=== PATIENT | female | born 1985 | race Caucasian/White ===

== ENCOUNTER 2016-09-20 12:00 | Emergency (ER) | payer OTHER, BC ==
[2016-09-20 13:23] LABS: ABSOLUTE NEUTROPHIL COUNT 5.2 K/mm3 (1.8-7.7); BASO % 0.2 % (0.2-1.0); EOS # 0.1 (0.0-0.5); EOS % 0.9 % (0.9-2.9); HEMATOCRIT 38.1 % (37.0-47.0); HEMOGLOBIN 12.7 gm/l (12.0-16.0); IMM NEUT% 0.4 % (0-1); LYMPH # 1.9 (1.0-4.8); LYMPH % 23.6 % (15-45); MEAN CELL VOLUME 84.5 fl (81.0-99.0); MEAN CORPUSCULAR HEMOGLOBIN 28.2 pg (27.0-31.0); MEAN CORPUSCULAR HGB CONC 33.3 g/dl (33.0-37.0); MEAN PLATELET VOLUME 9.3 fl (7.4-10.4); MONO # 0.9 (0.0-0.8); MONO % 10.7 % (4-12); NEUT % 64.2 % (43-75); PLATELET COUNT 255 K/mm3 (130-400); RED CELL DISTRIBUTION WIDTH 12.7 % (11.5-14.5)
[2016-09-20 13:53] LABS: PH,URINE 6.5 (5.0-8.0); URINE BILIRUBIN NEGATIVE (NEGATIVE); URINE BLOOD NEGATIVE (NEGATIVE); URINE GLUCOSE (UA) NEGATIVE (NEGATIVE); URINE LEUKOCYTE ESTERASE NEGATIVE (NEGATIVE); URINE NITRITE NEGATIVE (NEGATIVE); URINE PROTEIN NEGATIVE (NEGATIVE); URINE UROBILINOGEN NORMAL (0-1 mg/dl)
[2016-09-20 14:00] LABS: URINE APPEARANCE CLEAR; URINE COLOR YELLOW
--- NOTE | 2016-09-20 15:11 | US ---
OB ULTRASOUND LESS THAN 14 WEEKS HISTORY: Suspected bleeding. 10 weeks 0 days. Transabdominal and transvaginal obstetric ultrasound was performed. FINDINGS: INTRAUTERINE GESTATION: Present. MEAN SAC DIAMETER: 2.3 cm, corresponding to an age of 6 weeks 6 days. Grossly unremarkable fluid volume, mildly concave morphology. CROWN-RUMP LENGTH: 0.68 cm, corresponding to an age of 6 weeks 4 days. CARDIAC ACTIVITY: Present, with a heart rate of 129 beats per minute. SONOGRAPHIC MEAN GESTATIONAL AGE: 6 weeks 4 days. SONOGRAPHIC EDC: 05/12/2017. YOLK SAC: Present. DICKSON-GESTATIONAL HEMORRHAGE: Minor 8 x 8 x 3 mm hypoechoic focus inferior to the gestational sac, along less than 25% of sac circumference. RIGHT OVARY: 4.0 x 3.1 x 2.4 cm. LEFT OVARY: 2.5 x 2.4 x 1.2 cm. FOCAL ADNEXAL LESIONS: 2.4 cm hypoechoic focus on the right, probable corpus luteum. OVARIAN BLOOD FLOW: Documented bilaterally. FREE FLUID: Minor free fluid along the pelvic cul-de-sac. IMPRESSION: Single live imaging gestation sonographically dating 6 weeks 4 days with minor perigestational hemorrhage. Minor free fluid. Preserved ovarian blood flow with probable right-sided corpus luteum. Results were electronically transmitted to the electronic medical record at 09/20/2016 at 1508 hours.
== END 2016-09-20 15:46 | disposition home or self-care (01) ==
LOC: ED 12:00
DX: O20.0 Threatened abortion (principal); Z3A.01 Less than 8 weeks gestation of pregnancy